=== PATIENT | male | born 1930 | race Caucasian/White ===

== ENCOUNTER 2017-03-13 11:34 | Observation (INO) | payer OTHER ==
[~2017-03-13] VITALS: Ht 170.2 cm; Wt 67.9 kg
[~2017-03-13 11:34] MED LIST: BACL20TA PO; ISOS30TA35 PO; METO25TA3 PO; NITR0.4S UT; PANT40TA PO; PRED20TA PO
[2017-03-13] MEDS ORDERED: SODIUM CHLORIDE 0.9% 1000ML 1,000 ML IV STA (12:50)
[2017-03-13] MEDS ORDERED: SODIUM CHLORIDE 0.9% 500ML 500 ML IV STA (12:50)
[2017-03-13] MEDS ORDERED: ONDANSETRON INJ 2 MG/ML 2 ML VIAL IV STA (12:50)
[2017-03-13 12:56] LABS: BASO % 0.2 %; BASO ABS # 0.02 K/uL (0-0.2); EOS % 0.8 %; EOS ABS # 0.07 K/uL (0-0.5); HEMATOCRIT 49.6 % (42-52); IG# 0.02 K/uL (0.00-0.02); LYMPH % 17.7 %; LYMPH ABS # 1.52 K/uL (1.2-3.4); MEAN CELL VOLUME 85.4 fL (80-100); MEAN CORPUSCULAR HEMOGLOBIN 29.3 pg (25-34); MEAN CORPUSCULAR HGB CONC 34.3 g/dl (32-36); MEAN PLATELET VOLUME 9.9 fL (7.4-10.4); MONO % 9.9 %; MONO ABS # 0.85 K/uL (0.11-0.59); NEUT % 71.2 %; NEUT ABS # 6.09 K/uL (1.4-6.5); PLATELET COUNT 170 K/uL (130-400); PTT PATIENT 22.7 SECONDS (21.0-31.0); RED CELL DISTRIBUTION WIDTH CV 14.5 % (11.5-14.5); RED CELL DISTRIBUTION WIDTH SD 44.6 fL (36.4-46.3); WHITE BLOOD COUNT 8.57 K/uL (4.8-10.8)
[2017-03-13] MEDS ORDERED: OPTIRAY 320 IV PRN (13:00)
[2017-03-13 13:07] LABS: ALT/SGPT 27 U/L (12-78); AST/SGOT 20 U/L (15-37); BLOOD UREA NITROGEN 30 mg/dl (7-18); CALCIUM 9.3 mg/dl (8.5-10.1); CARBON DIOXIDE 30 mmol/L (21-32); CREATININE 1.05 mg/dl (0.60-1.40); GLUCOSE 94 mg/dl (70-99); LIPASE 141 U/L (73-393); POTASSIUM 3.7 mmol/L (3.5-5.1); SODIUM 139 mmol/L (136-145)
[2017-03-13 13:18] LABS: ALKALINE PHOSPHATASE 83 U/L (45-117)
--- NOTE | 2017-03-13 14:43 | DIAGNOSTIC IMAGING REPORT ---
CT ANGIOGRAPHY HEAD COMBO CT DOSE: CLINICAL HISTORY: Neck pain and dizziness. Vomiting. TECHNIQUE: Unenhanced images were obtained the brain. CT angiography the brain was then performed in a dynamic helical fashion during intravenous administration of 93 cc Optiray 320. MIP imaging was performed. A dose lowering technique was utilized adhering to the principles of ALARA. COMPARISON STUDY: Noncontrast head CT dated 10/20/2013 FINDINGS: The noncontrast portion of the study reveal no intra or extra-axial mass lesions. There was no CT evidence of acute cortical infarction. 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 This was not present in 2013. There is no evidence of acute hemorrhage. There is no evidence of hydrocephalus. There is no evidence of acute sinusitis. Postcontrast angiographic images reveal left jugular bulb dehiscence. There is a hypoplastic right transverse sinus. 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 There are no major intracranial branch occlusions. There is no evidence of major intracranial stenosis. There are no lesion suspicious for aneurysm. There is no evidence of dural venous sinus thrombosis. IMPRESSION: 1. No evidence of major intracranial branch occlusion 2. No evidence of aneurysm 3. Fenestrated basilar artery 4. Left jugular bulb dehiscence Electronically signed by: Solitario Gary M.D. 03/13/2017 2:41 PM Dictated Date/Time: 03/13/2017 2:36 PM
[2017-03-13] MEDS ORDERED: ATOR-22 PO (14:46)
[2017-03-13] MEDS ORDERED: ISOS60TA25 PO (14:46)
[2017-03-13] MEDS ORDERED: PRT/20 PO (14:46)
[2017-03-13] MEDS ORDERED: ASPI81TA28 PO (14:46)
[2017-03-13] MEDS ORDERED: METO25TA3 PO (14:46)
[2017-03-13] MEDS ORDERED: CHOL1000 PO (14:46)
--- NOTE | 2017-03-13 14:50 | DIAGNOSTIC IMAGING REPORT ---
CT NECK ANGIO WITH CONTRAST CLINICAL HISTORY: Neck pain, dizziness, vomiting. COMPARISON STUDY: No previous studies for comparison. TECHNIQUE: CT angiography was performed from the aortic arch to the skull base. MIP imaging was performed. The patient was scanned in a dynamic helical fashion during intravenous administration of 93 cc of Optiray 320. A dose lowering technique was utilized adhering to the principles of ALARA. CT DOSE: 1073.90 mGy.cm Technique: CT angiogram of the carotid and vertebral arteries was obtained using intravenous contrast and 3-D reconstruction. NASCET criteria was utilized. Findings: There is a 40% stenosis of the right internal carotid origin. The left carotid revealed no evidence of hemodynamic significant stenosis. There is no evidence of aneurysm. There is no evidence of dissection. There is no evidence of hemodynamically significant vertebral stenosis. There is no evidence of vertebral dissection. 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 IMPRESSION: 1. 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 No evidence of hemodynamic significant left internal carotid artery stenosis 3. No evidence of vertebral artery stenosis 4. No evidence of vertebral or carotid artery dissection 5. Fenestrated basilar artery 6. Left jugular bulb dehiscence Electronically signed by: Solitario Gary M.D. 03/13/2017 2:48 PM Dictated Date/Time: 03/13/2017 2:42 PM
[2017-03-13] MEDS ORDERED: ASPIRIN 81 MG CHEW PO STA (15:52)
[2017-03-13 17:09] VITALS: O2SAT 94
[2017-03-13] MEDS ORDERED: ONDANSETRON INJ 2 MG/ML 2 ML VIAL IV PRN (18:00)
[2017-03-13] MEDS ORDERED: ALEN70TA4 PO (18:03)
--- NOTE | 2017-03-13 18:04 | History and Physical ---
History & Physical Date & Time of Service: Mar 13, 2017 at 18:04 Chief Complaint: Vom Green, Confusion, Neck Pain, Bad Balance Primary Care Physician: Radha Moon D.O. History of Present Illness Source: patient, family, spouse, clinic records, hospital records 87 year old male with PMH of osteoporosis, tobacco use, Dyslipidemia, TIA present to the ER with symptoms of dizziness and confusion. Pt family members at bedside. As per family members, on 03/10 pt saw his PCP because he was having severe neck spasms. PCP prescribed him baclofen 20mg TID and prednisone. Pt said that once starting taking the baclofen and prednisone, he developed nausea and vomiting within a few hours. He said that he had many episodes of vomiting. He said that he already vomited 3xtimes today. Pt said that he started to feel dizzy with the feeling the room is spinning. Pt said that his gait was unsteady and he developed double vision. family said that he was very confused and did not make sense at all. Family said that as his neck pain seems to be worst and his confusing got worst as well. family said that today he has not been urinating much. Family said that pt stating to feel much better now. Denies any weakness, numbness, slurred speech, chest pain, fever, palpitation and SOB. Past Medical/Surgical History Surgical Problems: (1) History of cardiac cath Status: Chronic Social History Smoking Status: Never Smoker Marital Status: Occupational Status: employed Allergies Coded Allergies: Tetanus Toxoid (Verified Allergy, Unknown, hallucinations, 03/13/17) Home Medications Scheduled Alendronate Sodium (Fosamax), 1 TAB PO WK Aspirin (Aspirin Ec), 81 MG PO DAILY Atorvastatin (Lipitor), 20 MG PO DAILY Baclofen (Lioresal), 20 MG PO TID Cholecalciferol (Vitamin D3), 2 TAB PO DAILY Isosorbide Mononitrate Ext Rel (Imdur Ext Rel), 60 MG PO QAM Metoprolol Succ (Toprol Xl) (Toprol-Xl), 25 MG PO DAILY Nitroglycerin (Nitrostat), 0.4 MG UT PRN Pantoprazole (Protonix), 20 MG PO DAILY Prednisone (Prednisone), 20 MG PO DAILY Review of Systems Constitutional: No fever, No chills Eyes: + diplopia, No eye pain ENT: + hearing loss (decrease hearing function), No unusual epistaxis, No sore throat, No trouble swallowing Respiratory: No cough, No sputum, No shortness of breath, No dyspnea on exertion Cardiovascular: No chest pain, No orthopnea, No PND, No palpitations Abdomen: + nausea, + vomiting, No pain Musculoskeletal: No joint pain, No muscle pain Genitourinary - Male: + urinary retention, No hematuria Neurologic: + vertigo, + balance problems, + problem reported (confusion) Psychiatric: No depression symptoms, No substance abuse Endocrine: No fatigue, No excessive thirst Hematologic / Lymphatic: No clotting problems, No night sweats Integumentary: No rash, No itch Physical Exam Vital Signs Date Time Temp Pulse Resp B/P (MAP) Pulse Ox O2 Delivery O2 Flow Rate FiO2 03/13/17 17:09 66 18 94 03/13/17 17:01 142/84 03/13/17 16:39 68 21 03/13/17 16:32 170/95 03/13/17 16:09 69 24 92 03/13/17 16:04 68 14 94 03/13/17 16:01 135/87 03/13/17 15:34 70 21 94 03/13/17 15:31 141/87 03/13/17 15:04 67 11 95 03/13/17 15:01 129/95 03/13/17 14:34 72 21 97 03/13/17 14:31 66 19 138/85 98 Room Air 03/13/17 14:30 138/85 03/13/17 14:29 139/89 03/13/17 13:34 63 17 03/13/17 13:30 129/79 03/13/17 13:13 157/91 03/13/17 13:12 68 20 157/91 95 Room Air 03/13/17 13:12 140/101 03/13/17 13:04 68 17 03/13/17 13:02 86/57 03/13/17 12:35 65 03/13/17 12:34 61 19 94 03/13/17 12:30 127/78 03/13/17 12:09 94 Room Air 03/13/17 11:55 36.6 72 18 126/82 96 Room Air General Appearance: WD/WN, no apparent distress Head: normocephalic, atraumatic Eyes: normal inspection, PERRL, EOMI ENT: + pertinent finding (decrease hearing function) Neck: no adenopathy, no JVD Respiratory/Chest: lungs clear, normal breath sounds, no accessory muscle use Cardiovascular: regular rate, rhythm, no edema, no JVD Abdomen/GI: normal bowel sounds, non tender, soft Back: no CVA tenderness Extremities/Musculoskelatal: no calf tenderness Neurologic/Psych: no motor/sensory deficits, alert, normal mood/affect, oriented x 3 Skin: warm/dry, no rash Diagnostics Laboratory Results Results Past 24 Hours Test 03/13/17 09:05 Range/Units White Blood Count 8.57 4.8-10.8 K/uL Red Blood Count 5.81 4.7-6.1 M/uL Hemoglobin 17.0 14.0-18.0 g/dL Hematocrit 49.6 42-52 % Mean Corpuscular Volume 85.4 80-100 fL Mean Corpuscular Hemoglobin 29.3 25-34 pg Mean Corpuscular Hemoglobin Concent 34.3 32-36 g/dl Platelet Count 170 130-400 K/uL Mean Platelet Volume 9.9 7.4-10.4 fL Neutrophils (%) (Auto) 71.2 % Lymphocytes (%) (Auto) 17.7 % Monocytes (%) (Auto) 9.9 % Eosinophils (%) (Auto) 0.8 % Basophils (%) (Auto) 0.2 % Neutrophils # (Auto) 6.09 1.4-6.5 K/uL Lymphocytes # (Auto) 1.52 1.2-3.4 K/uL Monocytes # (Auto) 0.85 0.11-0.59 K/uL Eosinophils # (Auto) 0.07 0-0.5 K/uL Basophils # (Auto) 0.02 0-0.2 K/uL RDW Standard Deviation 44.6 36.4-46.3 fL RDW Coefficient of Variation 14.5 11.5-14.5 % Immature Granulocyte % (Auto) 0.2 % Immature Granulocyte # (Auto) 0.02 0.00-0.02 K/uL Prothrombin Time 10.8 9.0-12.0 SECONDS Prothromb Time International Ratio 1.0 0.9-1.1 Activated Partial Thromboplast Time 22.7 21.0-31.0 SECONDS Partial Thromboplastin Ratio 0.9 Sodium Level 139 136-145 mmol/L Potassium Level 3.7 3.5-5.1 mmol/L Chloride Level 105 98-107 mmol/L Carbon Dioxide Level 30 21-32 mmol/L Anion Gap 4.0 3-11 mmol/L Blood Urea Nitrogen 30 7-18 mg/dl Creatinine 1.05 0.60-1.40 mg/dl Est Creatinine Clear Calc Drug Dose 46.4 ml/min Estimated GFR () 73.6 Estimated GFR (Non- 63.5 BUN/Creatinine Ratio 28.4 10-20 Random Glucose 94 70-99 mg/dl Calcium Level 9.3 8.5-10.1 mg/dl Magnesium Level 2.4 1.8-2.4 mg/dl Total Bilirubin 1.1 0.2-1 mg/dl Direct Bilirubin 0.2 0-0.2 mg/dl Aspartate Amino Transf (AST/SGOT) 20 15-37 U/L Alanine Aminotransferase (ALT/SGPT) 27 12-78 U/L Alkaline Phosphatase 83 45-117 U/L Troponin I < 0.015 0-0.045 ng/ml Total Protein 8.0 6.4-8.2 gm/dl Albumin 4.0 3.4-5.0 gm/dl Lipase 141 73-393 U/L Thyroid Stimulating Hormone (TSH) 3.320 0.300-4.500 uIu/ml Diagnostic Radiology CT NECK ANGIO WITH CONTRAST CLINICAL HISTORY: Neck pain, dizziness, vomiting. COMPARISON STUDY: No previous studies for comparison. TECHNIQUE: CT angiography was performed from the aortic arch to the skull base. MIP imaging was performed. The patient was scanned in a dynamic helical fashion during intravenous administration of 93 cc of Optiray 320. A dose lowering technique was utilized adhering to the principles of ALARA. CT DOSE: 1073.90 mGy.cm Technique: CT angiogram of the carotid and vertebral arteries was obtained using intravenous contrast and 3-D reconstruction. NASCET criteria was utilized. Findings: There is a 40% stenosis of the right internal carotid origin. The left carotid revealed no evidence of hemodynamic significant stenosis. There is no evidence of aneurysm. There is no evidence of dissection. There is no evidence of hemodynamically significant vertebral stenosis. There is no evidence of vertebral dissection. 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 IMPRESSION: 1. 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 No evidence of hemodynamic significant left internal carotid artery stenosis 3. No evidence of vertebral artery stenosis 4. No evidence of vertebral or carotid artery dissection 5. Fenestrated basilar artery 6. Left jugular bulb dehiscence Electronically signed by: Solitario Gary M.D. 03/13/2017 2:48 PM Dictated Date/Time: 03/13/2017 2:[address] ANGIOGRAPHY HEAD COMBO CT DOSE: CLINICAL HISTORY: Neck pain and dizziness. Vomiting. TECHNIQUE: Unenhanced images were obtained the brain. CT angiography the brain was then performed in a dynamic helical fashion during intravenous administration of 93 cc Optiray 320. MIP imaging was performed. A dose lowering technique was utilized adhering to the principles of ALARA. COMPARISON STUDY: Noncontrast head CT dated 10/20/2013 FINDINGS: The noncontrast portion of the study reveal no intra or extra-axial mass lesions. There was no CT evidence of acute cortical infarction. 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 This was not present in 2013. There is no evidence of acute hemorrhage. There is no evidence of hydrocephalus. There is no evidence of acute sinusitis. Postcontrast angiographic images reveal left jugular bulb dehiscence. There is a hypoplastic right transverse sinus. 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 There are no major intracranial branch occlusions. There is no evidence of major intracranial stenosis. There are no lesion suspicious for aneurysm. There is no evidence of dural venous sinus thrombosis. IMPRESSION: 1. No evidence of major intracranial branch occlusion 2. No evidence of aneurysm 3. Fenestrated basilar artery 4. Left jugular bulb dehiscence Electronically signed by: Solitario Gary M.D. 03/13/2017 2:41 PM Dictated Date/Time: 03/13/2017 2:36 PM Impression Assessment and Plan Altered Mental status associated with Dizziness Mostly related to medication side effect of Baclofen CTA head showed no acute finding. No evidence of major intracranial branch occlusion CTA neck showed 40% stenosis of the right internal carotid origin.No significant evidence of left internal carotid artery stenosis.No evidence of vertebral or carotid artery dissection No focal neuro deficit on exam Symptoms improved UA negative Will do neuro check Meclizine prn for dizziness Will do gentle hydration will monitor in tele Fall precaution PT/OT Nausea/Vomiting Related to medication side effect Lipase normal Hold baclofen Zofran prn Gentle IVF Neck Pain Will get an xray of the neck stating on lidocaine ointment pain control Urinary retention related to baclofen Will do bladder scan and straight cath if greater than 400 cc continue monitor CAD Denies any chest pain EKG showed no ischemic changes Continue metoprol/statin and aspirin stable H/o TIA Continue aspirin/ statin DVT px on heparin subq CODE Status FULL no Mech Ventilation as per my discussion with pt and his family Level of Care Telemetry Resuscitation Status FULL NO MECH VENTILATION VTE Prophylaxis VTE Risk Assessment Done? Y/N: Yes Risk Level: Moderate
[2017-03-13] MEDS ORDERED: MECLIZINE HCL 12.5 MG TAB PO PRN (18:15)
[2017-03-13] MEDS ORDERED: SODIUM CHLORIDE 0.9% 1000ML 1,000 ML IV SCH (18:15)
[2017-03-13] MEDS ORDERED: LIDOCAINE HCL 5% OINT 30 GM TUBE EXT PRN (18:15)
[2017-03-13 18:33] VITALS: BP 130/70; PULSE 62; TEMP 36.9; O2SAT 94
[2017-03-13 19:17] VITALS: BP 130/70; PULSE 62; TEMP 36.9; Ht 170.2 cm; Wt 67.9 kg
[2017-03-13] MEDS ORDERED: IV FLUIDS COMPLETED PRN (20:30)
[2017-03-13] MEDS ORDERED: ACETAMINOPHEN 325 MG TAB PO PRN (20:45)
[2017-03-13] MEDS: HEPARIN SOD 5000 UNIT/0.5 ML CARP SQ SCH (21:36)
--- NOTE | 2017-03-13 22:00 | EMERGENCY ROOM VISIT NOTE ---
History Report prepared by Saira: Darren Still Under the Supervision of: Dr. Luis Fernando Mercer M.D. First contact with patient: 12:12 Chief Complaint: VOMITING Stated Complaint: VOM GREEN, CONFUSION, NECK PAIN, BAD BALANCE Nursing Triage Summary: pt to Triage with family. reports pt had left sided neck pain last week, seen by PCP on Friday. pt was put on Prednisone. Pt then began vomiting. Pt has been vomiting green bile. pt still c/o right sided neck pain, dizziness. Has been having falls. denies hitting head. family reports pt is confused at times. pt awake and alert in Triage History of Present Illness The patient is an 87 year old male who presents to the Emergency Room with complaints of worsening dizziness and confusion that the patient began to experience yesterday. The patient went to his primary care office last week for pain in the right side of his neck. He was not vomiting at this time. He was given Baclofen and Prednisone for a muscle spasm. Friday, two days ago, the patient took his medications and immediately vomited. He has vomited multiple times since Friday. Yesterday the patient began to feel dizzy and confused. The patient notes that "the room is spinning" and that he is seeing double vision. The rooms spinning is present when standing up and laying down. He is also unsteady on his feel and is not able to ambulate well. He has been stumbling to both sides, not to any one particular direction. This is all unusual for him. The patient's family at bedside notes that he is intermittently confused and not making sense when he is talking. The patient's also notes worsening fatigue. The patient denies LOC, fevers, chills, diaphoresis, chest pain, breathing difficulties, abdominal pain, back pain, melena, hematochezia, urinary symptoms, numbness, weakness, lymphadenopathy, rash, or other complaints. Per the patient's he has had a stroke in the past. 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 A total of ten systems were reviewed and were otherwise negative. Past Medical & Surgical Medical Problems: (1) Dizziness Surgical Problems: (1) History of cardiac cath TIA (transient ischemic attack) Family History No pertinent family history secondary to age. Social History Smoking Status: Never Smoker Marital Status: Housing Status: lives with family Occupation Status: employed Current/Historical Medications Scheduled Alendronate Sodium (Fosamax), 1 TAB PO WK Aspirin (Aspirin Ec), 81 MG PO DAILY Atorvastatin (Lipitor), 20 MG PO DAILY Baclofen (Lioresal), 20 MG PO TID Cholecalciferol (Vitamin D3), 2 TAB PO DAILY Isosorbide Mononitrate Ext Rel (Imdur Ext Rel), 60 MG PO QAM Metoprolol Succ (Toprol Xl) (Toprol-Xl), 25 MG PO DAILY Nitroglycerin (Nitrostat), 0.4 MG UT PRN Pantoprazole (Protonix), 20 MG PO DAILY Prednisone (Prednisone), 20 MG PO DAILY Allergies Coded Allergies: Tetanus Toxoid (Verified Allergy, Unknown, hallucinations, 03/13/17) Physical Exam Vital Signs Date Time Temp Pulse Resp B/P (MAP) Pulse Ox O2 Delivery O2 Flow Rate FiO2 03/13/17 17:01 142/84 03/13/17 16:39 68 21 03/13/17 16:32 170/95 03/13/17 16:09 69 24 92 03/13/17 16:04 68 14 94 03/13/17 16:01 135/87 03/13/17 15:34 70 21 94 03/13/17 15:31 141/87 03/13/17 15:04 67 11 95 03/13/17 15:01 129/95 03/13/17 14:34 72 21 97 03/13/17 14:31 66 19 138/85 98 Room Air 03/13/17 14:30 138/85 03/13/17 14:29 139/89 03/13/17 13:34 63 17 03/13/17 13:30 129/79 03/13/17 13:13 157/91 03/13/17 13:12 68 20 157/91 95 Room Air 03/13/17 13:12 140/101 03/13/17 13:04 68 17 03/13/17 13:02 86/57 03/13/17 12:35 65 03/13/17 12:34 61 19 94 03/13/17 12:30 127/78 03/13/17 12:09 94 Room Air 03/13/17 11:55 36.6 72 18 126/82 96 Room Air Physical Exam GENERAL: Awake, alert, well appearing, no distress HENT: Normocephalic, atraumatic. TM's normal. Oropharynx unremarkable. EYES: PERRL. EOMI. Normal conjunctiva. Sclera non-icteric. NECK: Supple. No nuchal rigidity. FROM. No JVD or bruit. RESPIRATORY: CTA CARDIAC: RRR. No murmur. ABDOMEN: Soft, non distended. No tenderness to palpation. No rebound or guarding. No masses. RECTAL: Deferred. MUSCULOSKELETAL: There is right trapezius tenderness. Unremarkable. No edema. No discoloration. Gross motor strength symmetric. NEURO: Cranial nerves 2-12 grossly intact. Normal sensorium. No sensory or motor deficits noted. Speech normal. No pronator drift. Slow rapid alternating movements, equivocal heel to james. SKIN: No rash or jaundice noted. LYMPH: No adenopathy. Medical Decision & Procedures ER Provider Diagnostic Interpretation: Radiology results as stated below per my review and radiologist interpretation: CT NECK ANGIO WITH CONTRAST CLINICAL HISTORY: Neck pain, dizziness, vomiting. COMPARISON STUDY: No previous studies for comparison. TECHNIQUE: CT angiography was performed from the aortic arch to the skull base. MIP imaging was performed. The patient was scanned in a dynamic helical fashion during intravenous administration of 93 cc of Optiray 320. A dose lowering technique was utilized adhering to the principles of ALARA. CT DOSE: 1073.90 mGy.cm Technique: CT angiogram of the carotid and vertebral arteries was obtained using intravenous contrast and 3-D reconstruction. NASCET criteria was utilized. Findings: There is a 40% stenosis of the right internal carotid origin. The left carotid revealed no evidence of hemodynamic significant stenosis. There is no evidence of aneurysm. There is no evidence of dissection. There is no evidence of hemodynamically significant vertebral stenosis. There is no evidence of vertebral dissection. 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 IMPRESSION: 1. 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 No evidence of hemodynamic significant left internal carotid artery stenosis 3. No evidence of vertebral artery stenosis 4. No evidence of vertebral or carotid artery dissection 5. Fenestrated basilar artery 6. Left jugular bulb dehiscence Electronically signed by: Solitario Gary M.D. 03/13/2017 2:48 PM Dictated Date/Time: 03/13/2017 2:42 PM+ CT ANGIOGRAPHY HEAD COMBO CT DOSE: CLINICAL HISTORY: Neck pain and dizziness. Vomiting. TECHNIQUE: Unenhanced images were obtained the brain. CT angiography the brain was then performed in a dynamic helical fashion during intravenous administration of 93 cc Optiray 320. MIP imaging was performed. A dose lowering technique was utilized adhering to the principles of ALARA. COMPARISON STUDY: Noncontrast head CT dated 10/20/2013 FINDINGS: The noncontrast portion of the study reveal no intra or extra-axial mass lesions. There was no CT evidence of acute cortical infarction. 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 This was not present in 2013. There is no evidence of acute hemorrhage. There is no evidence of hydrocephalus. There is no evidence of acute sinusitis. Postcontrast angiographic images reveal left jugular bulb dehiscence. There is a hypoplastic right transverse sinus. 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 There are no major intracranial branch occlusions. There is no evidence of major intracranial stenosis. There are no lesion suspicious for aneurysm. There is no evidence of dural venous sinus thrombosis. IMPRESSION: 1. No evidence of major intracranial branch occlusion 2. No evidence of aneurysm 3. Fenestrated basilar artery 4. Left jugular bulb dehiscence Electronically signed by: Solitario Gary M.D. 03/13/2017 2:41 PM Dictated Date/Time: 03/13/2017 2:36 PM Laboratory Results 03/13/17 09:05 Red Blood Count 5.81, Mean Corpuscular Volume 85.4, Mean Corpuscular Hemoglobin 29.3, Mean Corpuscular Hemoglobin Concent 34.3, Mean Platelet Volume 9.9, Neutrophils (%) (Auto) 71.2, Lymphocytes (%) (Auto) 17.7, Monocytes (%) (Auto) 9.9, Eosinophils (%) (Auto) 0.8, Basophils (%) (Auto) 0.2, Neutrophils # (Auto) 6.09, Lymphocytes # (Auto) 1.52, Monocytes # (Auto) 0.85, Eosinophils # (Auto) 0.07, Basophils # (Auto) 0.02 03/13/17 09:05 Test 03/13/17 09:05 White Blood Count 8.57 K/uL (4.8-10.8) Red Blood Count 5.81 M/uL (4.7-6.1) Hemoglobin 17.0 g/dL (14.0-18.0) Hematocrit 49.6 % (42-52) Mean Corpuscular Volume 85.4 fL (80-100) Mean Corpuscular Hemoglobin 29.3 pg (25-34) Mean Corpuscular Hemoglobin Concent 34.3 g/dl (32-36) Platelet Count 170 K/uL (130-400) Mean Platelet Volume 9.9 fL (7.4-10.4) Neutrophils (%) (Auto) 71.2 % Lymphocytes (%) (Auto) 17.7 % Monocytes (%) (Auto) 9.9 % Eosinophils (%) (Auto) 0.8 % Basophils (%) (Auto) 0.2 % Neutrophils # (Auto) 6.09 K/uL (1.4-6.5) Lymphocytes # (Auto) 1.52 K/uL (1.2-3.4) Monocytes # (Auto) 0.85 K/uL (0.11-0.59) Eosinophils # (Auto) 0.07 K/uL (0-0.5) Basophils # (Auto) 0.02 K/uL (0-0.2) RDW Standard Deviation 44.6 fL (36.4-46.3) RDW Coefficient of Variation 14.5 % (11.5-14.5) Immature Granulocyte % (Auto) 0.2 % Immature Granulocyte # (Auto) 0.02 K/uL (0.00-0.02) Prothrombin Time 10.8 SECONDS (9.0-12.0) Prothromb Time International Ratio 1.0 (0.9-1.1) Activated Partial Thromboplast Time 22.7 SECONDS (21.0-31.0) Partial Thromboplastin Ratio 0.9 Anion Gap 4.0 mmol/L (3-11) Est Creatinine Clear Calc Drug Dose 46.4 ml/min Estimated GFR () 73.6 Estimated GFR (Non- 63.5 BUN/Creatinine Ratio 28.4 (10-20) Calcium Level 9.3 mg/dl (8.5-10.1) Magnesium Level 2.4 mg/dl (1.8-2.4) Total Bilirubin 1.1 mg/dl (0.2-1) Direct Bilirubin 0.2 mg/dl (0-0.2) Aspartate Amino Transf (AST/SGOT) 20 U/L (15-37) Alanine Aminotransferase (ALT/SGPT) 27 U/L (12-78) Alkaline Phosphatase 83 U/L (45-117) Troponin I < 0.015 ng/ml (0-0.045) Total Protein 8.0 gm/dl (6.4-8.2) Albumin 4.0 gm/dl (3.4-5.0) Lipase 141 U/L (73-393) Thyroid Stimulating Hormone (TSH) 3.320 uIu/ml (0.300-4.500) Laboratory results reviewed by me Medications Administered Medications (Trade) Dose Ordered Sig/Luther Route Start Time Stop Time Status Last Admin Dose Admin Sodium Chloride 1,000 ml @ 125 mls/hr Q8H STAT IV 03/13/17 12:50 03/13/17 18:15 DC 03/13/17 13:46 125 MLS/HR Sodium Chloride 500 ml @ 999 mls/hr Q31M STAT IV 03/13/17 12:50 03/13/17 13:20 DC 03/13/17 13:10 999 MLS/HR Ondansetron HCl (Zofran Inj) 4 mg NOW STAT IV 03/13/17 12:50 03/13/17 12:53 DC 03/13/17 13:09 4 MG Aspirin (Aspirin Chew) 324 mg NOW STAT PO 03/13/17 15:52 03/13/17 15:53 DC 03/13/17 16:23 324 MG ECG Indication: altered mental status, vomiting Rate (beats per minute): 69 Rhythm: normal sinus Findings: LAFB, Q waves (Anterolateral), no ectopy Change: Patient's Electrocardiogram reading per my interpretation. ED Course 1246: The patient was evaluated in room C5. A complete history and physical exam was performed. 1250: Ordered Zofran 4 mg IV, Sodium Chloride 500 mL @ 999 mL/hr IV, Sodium Chloride 1000 mL @ 125 mL/hr IV. 1551: I checked on the patient at this time. He was resting in bed. 1552: Ordered Aspirin 324 mg PO. 1609: I discussed the case with Erica Groves PA-C. She will evaluate the patient for further treatment. Medical Decision Prior records/ancillary studies reviewed. Triage Nursing notes reviewed and agree them. The patient's history was concerning for dizziness, neck pain, double vision, and confusion. Differential diagnosis: Etiologies such as vertebral artery dissection, CVA, benign positional vertigo, tumor, infection, hypoglycemia, electrolyte abnormalities, cardiac sources, intracerebral event, toxicologic, neurologic, as well as others were entertained. Physical examination: As above. No pathologic nystagmus. ER treatment provided: IV hydration over one hour IV Zofran On reassessment the patient felt well. Diagnostics interpretation by me: ECG: Normal sinus rhythm without ischemic change or evidence of dysrhythmia. The labs revealed a normal CBC and chemistry panel except for mild dehydration. The patient's history was concerning for possible CVA given the neck pain, dizziness, double vision and nausea and vomiting. The patient was mildly dehydrated. He was hydrated and given Zofran. He felt better with this. CT imaging was thankfully negative however further workup I believe is necessary. Family was comfortable as was the patient. Consultation: A consultation was placed with the hospitalist. The case was discussed and diagnostics were reviewed. The patient was evaluated in the ER for further treatment. Consults Time Called: 1600 Consulting Physician: Erica Groves PA-C Returned Call: 1609 I discussed the case with Erica Groves PA-C. She will evaluate the patient for further treatment. Impression Primary Impression: Vomiting Additional Impressions: Dizziness Neck pain Double vision Scribe Attestation The scribe's documentation has been prepared under my direction and personally reviewed by me in its entirety. I confirm that the note above accurately reflects all work, treatment, procedures, and medical decision making performed by me. Departure Information Dispostion Being Evaluated By Hospitalist Referrals Emilia Brothers M.D. (PCP) Patient Instructions [facility] Problem Qualifiers
--- NOTE | 2017-03-13 22:55 | DIAGNOSTIC IMAGING REPORT ---
CERVICAL SPINE 3 VIEWS CLINICAL HISTORY: Neck tenderness. FINDINGS: AP, lateral, and odontoid views of the cervical spine are correlated with CT angiogram of the neck dated 03/13/2017. The skeletal structures are osteopenic. There is no radiographic evidence of fracture or subluxation. The odontoid process and lateral masses are suboptimally visualized but grossly intact. The atlantodental articulation is maintained noting productive degenerative change. The spinolaminar line is preserved. Vertebral body height is maintained throughout the cervical spine. Minimal anterolisthesis is seen at C4-C5. Alignment is otherwise preserved. Tiny anterior osteophytes are noted in the lower cervical region. The spinous processes appear intact. Moderate disc space narrowing is seen at C5-C6. Mild disc space narrowing is noted at the remaining cervical levels. Multilevel facet arthropathy is seen on the frontal view. The prevertebral soft tissues are within normal limits. Atherosclerotic calcification is noted in the carotid bulbs. The partially imaged upper lobe lung parenchyma is grossly clear. IMPRESSION: 1. No acute bony abnormality is identified involving the cervical spine. 2. Osteopenia and spondylotic change as above. Dictated: 03/13/2017 10:27 PM Transcribed: 03/13/2017 10:55 PM [email or web address] Electronically signed by: Tomas Bishop M.D. 03/13/2017 10:56 PM Dictated Date/Time: 03/13/2017 10:27 PM
[2017-03-13 23:47] VITALS: BP 146/88; PULSE 75; TEMP 36.1; O2SAT 95
[2017-03-14 05:03] VITALS: BP_SYST 133; BP_SYST 165; BP_DIAS 74; BP_DIAS 92; PULSE 71; TEMP 36.4; O2SAT 94
[2017-03-14 07:04] LABS: HEMOGLOBIN 15.6 g/dL (14.0-18.0); MEAN CELL VOLUME 86.3 fL (80-100); MEAN CORPUSCULAR HEMOGLOBIN 29.3 pg (25-34); MEAN CORPUSCULAR HGB CONC 33.9 g/dl (32-36); MEAN PLATELET VOLUME 9.6 fL (7.4-10.4); PLATELET COUNT 135 K/uL (130-400); RED CELL DISTRIBUTION WIDTH CV 14.5 % (11.5-14.5); RED CELL DISTRIBUTION WIDTH SD 45.5 fL (36.4-46.3); WHITE BLOOD COUNT 6.25 K/uL (4.8-10.8)
[2017-03-14 07:41] LABS: CALCIUM 8.5 mg/dl (8.5-10.1); CREATININE 0.99 mg/dl (0.60-1.40); POTASSIUM 3.9 mmol/L (3.5-5.1)
[2017-03-14] MEDS: HEPARIN SOD 5000 UNIT/0.5 ML CARP SQ SCH (07:45)
[2017-03-14 07:57] VITALS: BP 150/76; PULSE 71; TEMP 36.5; O2SAT 94
[2017-03-14] MEDS ORDERED: METOPROLOL SUCC 25MG EXT REL TAB PO SCH (09:00)
[2017-03-14] MEDS ORDERED: ASPIRIN 81 MG ECTAB PO SCH (09:00)
[2017-03-14] MEDS ORDERED: ISOSORBIDE MONONITRATE 60 MG TABCR PO SCH (09:00)
[2017-03-14] MEDS ORDERED: PANTOprazole SOD 40 MG TAB PO SCH (09:00)
[2017-03-14] MEDS ORDERED: CHOLECALCIFEROL 1000 INTER.UNIT TAB PO SCH (09:00)
[2017-03-14] MEDS ORDERED: ATORVASTATIN 20 MG TAB PO SCH (09:00)
[2017-03-14 11:59] VITALS: BP 111/66; PULSE 68; TEMP 36.4; O2SAT 94
[2017-03-14] MEDS ORDERED: KETOROLAC TROMETHAMINE 15 MG/ML VIAL IM ONE (12:00)
[2017-03-14] MEDS ORDERED: LIDODERM (LIDOCAINE) PATCH 5% TD ONE (12:11)
--- NOTE | 2017-03-14 12:11 | Progress Note ---
Medicine Progress Note Date & Time of Visit: Mar 14, 2017 at 11:56. Subjective Pt was see and examined Lying in bed with no distress Pt said that he does not have any dizziness he said that he has a good BM He has not been vomiting and no nausea He said that he tolerates diet well Denies any chest pain, palpitation, dizziness and SOB Objective Last 8 Hrs Date Time Temp Pulse Resp B/P (MAP) Pulse Ox O2 Delivery O2 Flow Rate FiO2 03/14/17 11:51 Room Air 03/14/17 07:57 36.5 71 20 150/76 (100) 94 03/14/17 07:30 Room Air 03/14/17 05:03 36.4 71 19 165/92 (116) 94 Room Air 133/74 (93) 03/14/17 04:00 Room Air Physical Exam: General- No acute distress Head- atraumatic Eyes- PERRL, EOMI ENT- oropharynx clear Neck- supple, no JVD Lungs- clear to auscultation Heart- regular rhythm Abdomen- normal bowel sounds, soft, Extremities- no calf tenderness Neuro- alert, oriented x 3; PERRL Skin- warm & dry Laboratory Results: Last 24 Hours Test 03/13/17 18:30 03/14/17 06:39 Urine Color YELLOW Urine Appearance CLEAR Urine pH 5.0 Urine Specific [place] > 1.045 Urine Protein NEG Urine Glucose (UA) NEG Urine Ketones NEG Urine Occult Blood NEG Urine Nitrite NEG Urine Bilirubin NEG Urine Urobilinogen NEG Urine Leukocyte Esterase NEG White Blood Count 6.25 K/uL Red Blood Count 5.33 M/uL Hemoglobin 15.6 g/dL Hematocrit 46.0 % Mean Corpuscular Volume 86.3 fL Mean Corpuscular Hemoglobin 29.3 pg Mean Corpuscular Hemoglobin Concent 33.9 g/dl RDW Standard Deviation 45.5 fL RDW Coefficient of Variation 14.5 % Platelet Count 135 K/uL Mean Platelet Volume 9.6 fL Sodium Level 140 mmol/L Potassium Level 3.9 mmol/L Chloride Level 107 mmol/L Carbon Dioxide Level 27 mmol/L Anion Gap 6.0 mmol/L Blood Urea Nitrogen 31 mg/dl Creatinine 0.99 mg/dl Est Creatinine Clear Calc Drug Dose 49.2 ml/min Estimated GFR () 79.0 Estimated GFR (Non- 68.2 BUN/Creatinine Ratio 31.6 Random Glucose 76 mg/dl Calcium Level 8.5 mg/dl Date/Time Source Procedure Growth Status 03/13/17 18:30 Urine , Clean Catch Urine Culture Pending Received Assessment & Plan Altered Mental status associated with Dizziness Mostly related to medication side effect of Baclofen CTA head showed no acute finding. No evidence of major intracranial branch occlusion CTA neck showed 40% stenosis of the right internal carotid origin.No significant evidence of left internal carotid artery stenosis.No evidence of vertebral or carotid artery dissection Denies any symptoms today UA negative Meclizine prn for dizziness No arrhythmia Fall precaution PT/OT Resolved Nausea/Vomiting Related to medication side effect Lipase normal Continue holding baclofen Resolved Neck Pain Xray showed no acute bony abnormality is identified involving the cervical spine. Toradol given Recommended outpatient PT pain control Urinary retention Related to baclofen resolved CAD Denies any chest pain EKG showed no ischemic changes Continue metoprol/statin and aspirin stable H/o TIA Continue aspirin/ statin DVT px on heparin subq CODE Status FULL no Mech Ventilation Disposition Will discharge home today Current Inpatient Medications: Current Inpatient Medications Medications (Trade) Dose Ordered Sig/Luther Route Start Time Stop Time Status Last Admin Dose Admin Ioversol (Optiray 320) 100 ml UD PRN IV 03/13/17 13:00 03/17/17 12:59 Ondansetron HCl (Zofran Inj) 4 mg Q6H PRN IV 03/13/17 18:00 04/12/17 17:59 Meclizine HCl (Antivert Tab) 12.5 mg Q12 PRN PO 03/13/17 18:15 04/12/17 18:14 Lidocaine HCl (Xylocaine Oint 5%) 1 appln Q12 PRN EXT 03/13/17 18:15 04/12/17 18:14 03/13/17 19:56 1 APPLN Aspirin (Ecotrin Tab) 81 mg DAILY PO 03/14/17 09:00 04/13/17 08:59 03/14/17 07:42 81 MG Atorvastatin Calcium (Lipitor Tab) 20 mg DAILY PO 03/14/17 09:00 04/13/17 08:59 03/14/17 07:42 20 MG Cholecalciferol (Vitamin D Tab) 2,000 inter.unit DAILY PO 03/14/17 09:00 04/13/17 08:59 03/14/17 07:42 2,000 INTER.UNIT Isosorbide Mononitrate (Imdur Ext Rel Tab) 60 mg QAM PO 03/14/17 09:00 04/13/17 08:59 03/14/17 07:42 60 MG Metoprolol Succinate (Toprol Xl Tab) 25 mg DAILY PO 03/14/17 09:00 04/13/17 08:59 03/14/17 08:17 25 MG Pantoprazole Sodium (Protonix Tab) 20 mg DAILY PO 03/14/17 09:00 04/13/17 08:59 03/14/17 07:42 20 MG Miscellaneous (Iv Fluids Completed) 1 ea PRN PRN N/A 03/13/17 20:30 03/13/18 20:29 03/14/17 08:46 1 EA Heparin Sodium (Porcine) (Heparin Sq 5000 Unit/0.5ml) 5,000 unit Q12 SQ 03/13/17 21:00 04/12/17 20:59 03/14/17 07:45 5,000 UNIT Acetaminophen (Tylenol Tab) 650 mg Q6 PRN PO 03/13/17 20:45 04/12/17 20:44 03/14/17 07:44 650 MG Ketorolac Tromethamine (Toradol Inj) 15 mg ONE ONCE IM 03/14/17 12:00 03/14/17 12:01 UNV
[2017-03-14] MEDS ORDERED: NURSING VERBAL MED ORDER ONE (12:30)
[2017-03-14] MEDS ORDERED: KETOROLAC TROMETHAMINE 15 MG/ML VIAL IV. ONE (13:15)
[2017-03-14] MEDS ORDERED: LDDP5 TD (15:51)
--- NOTE | 2017-03-14 15:55 | Discharge Instructions ---
Discharge Instructions Date of Service Mar 14, 2017. Admission Reason for Admission: Dizziness Discharge Discharge Diagnosis / Problem: Altered Mental Status, Dizziness, Nauseas/ Vominting Discharge Goals Goal(s): Decrease discomfort, Improve function, Increase independence Activity Recommendations Activity Limitations: resume your previous activity (as tolerated) . Instructions / Follow-Up Instructions / Follow-Up Follow up with Dr. Gao (Dr. Moon Colleague) on 03/19 @ 11:30 am at the [facility] Fall precaution Continue physical therapy ( script given) Current Hospital Diet Patient's current hospital diet: AHA Diet (Heart Healthy) Discharge Diet Recommended Diet: AHA Diet (Heart Healthy) Pending Studies Studies pending at discharge: no Medical Emergencies . Who to Call and When: Medical Emergencies: If at any time you feel your situation is an emergency, please call 911 immediately. . Non-Emergent Contact Non-Emergency issues call your: Primary Care Provider Call Non-Emergent contact if: your pain is not controlled, your pain is worsening, you have any medication questions . . "Provider Documentation" section prepared by Marie Frank. . VTE Core Measure Inpt VTE Proph given/why not?: Unfractionated heparin SQ
[2017-03-14 16:02] VITALS: BP 114/73; PULSE 62; TEMP 36.3; O2SAT 95
[2017-03-14 16:16] VITALS: BP 114/73; PULSE 62; TEMP 36.3; O2SAT 95
[2017-03-15] MEDS ORDERED: LIDODERM (LIDOCAINE) PATCH 5% TD SCH (09:00)
--- NOTE | 2017-03-17 00:23 | Discharge Summary ---
Discharge Summary Date of Service Mar 17, 2017. Discharge Summary Admission Date: Mar 13, 2017 at 17:01 Discharge Date: Mar 14, 2017 Discharge Disposition: Home Principal Diagnosis: Altered Mental status associated with Dizziness Secondary Diagnoses/Problems: Nausea/Vomiting Neck Pain Urinary retention CAD H/o TIA Procedures: CERVICAL SPINE 3 VIEWS CLINICAL HISTORY: Neck tenderness. FINDINGS: AP, lateral, and odontoid views of the cervical spine are correlated with CT angiogram of the neck dated 03/13/2017. The skeletal structures are osteopenic. There is no radiographic evidence of fracture or subluxation. The odontoid process and lateral masses are suboptimally visualized but grossly intact. The atlantodental articulation is maintained noting productive degenerative change. The spinolaminar line is preserved. Vertebral body height is maintained throughout the cervical spine. Minimal anterolisthesis is seen at C4-C5. Alignment is otherwise preserved. Tiny anterior osteophytes are noted in the lower cervical region. The spinous processes appear intact. Moderate disc space narrowing is seen at C5-C6. Mild disc space narrowing is noted at the remaining cervical levels. Multilevel facet arthropathy is seen on the frontal view. The prevertebral soft tissues are within normal limits. Atherosclerotic calcification is noted in the carotid bulbs. The partially imaged upper lobe lung parenchyma is grossly clear. IMPRESSION: 1. No acute bony abnormality is identified involving the cervical spine. 2. Osteopenia and spondylotic change as above. Dictated: 03/13/2017 10:27 PM Transcribed: 03/13/2017 10:55 PM [email or web address] Electronically signed by: Tomas Bishop M.D. 03/13/2017 10:56 PM Dictated Date/Time: 03/13/2017 10:[address] NECK ANGIO WITH CONTRAST CLINICAL HISTORY: Neck pain, dizziness, vomiting. COMPARISON STUDY: No previous studies for comparison. TECHNIQUE: CT angiography was performed from the aortic arch to the skull base. MIP imaging was performed. The patient was scanned in a dynamic helical fashion during intravenous administration of 93 cc of Optiray 320. A dose lowering technique was utilized adhering to the principles of ALARA. CT DOSE: 1073.90 mGy.cm Technique: CT angiogram of the carotid and vertebral arteries was obtained using intravenous contrast and 3-D reconstruction. NASCET criteria was utilized. Findings: There is a 40% stenosis of the right internal carotid origin. The left carotid revealed no evidence of hemodynamic significant stenosis. There is no evidence of aneurysm. There is no evidence of dissection. There is no evidence of hemodynamically significant vertebral stenosis. There is no evidence of vertebral dissection. 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 IMPRESSION: 1. 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 No evidence of hemodynamic significant left internal carotid artery stenosis 3. No evidence of vertebral artery stenosis 4. No evidence of vertebral or carotid artery dissection 5. Fenestrated basilar artery 6. Left jugular bulb dehiscence Electronically signed by: Solitario Gary M.D. 03/13/2017 2:48 PM Dictated Date/Time: 03/13/2017 2:[address] ANGIOGRAPHY HEAD COMBO CT DOSE: CLINICAL HISTORY: Neck pain and dizziness. Vomiting. TECHNIQUE: Unenhanced images were obtained the brain. CT angiography the brain was then performed in a dynamic helical fashion during intravenous administration of 93 cc Optiray 320. MIP imaging was performed. A dose lowering technique was utilized adhering to the principles of ALARA. COMPARISON STUDY: Noncontrast head CT dated 10/20/2013 FINDINGS: The noncontrast portion of the study reveal no intra or extra-axial mass lesions. There was no CT evidence of acute cortical infarction. 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 This was not present in 2013. There is no evidence of acute hemorrhage. There is no evidence of hydrocephalus. There is no evidence of acute sinusitis. Postcontrast angiographic images reveal left jugular bulb dehiscence. There is a hypoplastic right transverse sinus. 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 There are no major intracranial branch occlusions. There is no evidence of major intracranial stenosis. There are no lesion suspicious for aneurysm. There is no evidence of dural venous sinus thrombosis. IMPRESSION: 1. No evidence of major intracranial branch occlusion 2. No evidence of aneurysm 3. Fenestrated basilar artery 4. Left jugular bulb dehiscence Electronically signed by: Solitario Gary M.D. 03/13/2017 2:41 PM Dictated Date/Time: 03/13/2017 2:36 PM Medication Reconciliation New Medications: Lidocaine (Lidocaine) 1 Patch Tdsy 1 PATCH TD QAM for 10 Days Apply for 12hrs, then remove for 12hrs Continued Medications: Alendronate Sodium (Fosamax) 70 Mg Tab 1 TAB PO WK, TAB 3 Refills Aspirin (Aspirin Ec) 81 Mg Tab 81 MG PO DAILY Atorvastatin (Lipitor) 20 Mg Tab 20 MG PO DAILY, TAB Cholecalciferol (Vitamin D3) 1,000 Unit Tab 2 TAB PO DAILY, TAB Isosorbide Mononitrate Ext Rel (Imdur Ext Rel) 60 Mg Ertab 60 MG PO QAM, TAB Metoprolol Succ (Toprol Xl) (Toprol-Xl) 25 Mg Tabcr 25 MG PO DAILY, TAB Nitroglycerin (Nitrostat) 0.4 Mg Sub 0.4 MG UT PRN, BTL Pantoprazole (Protonix) 20 Mg Tab 20 MG PO DAILY, TAB Discontinued Medications: Baclofen (Lioresal) 20 Mg Tab 20 MG PO TID, TAB Prednisone (Prednisone) 20 Mg Tab 20 MG PO DAILY for 10 Days, #10 TAB Admission Information HPI (per Admitting provider): 87 year old male with PMH of osteoporosis, tobacco use, Dyslipidemia, TIA present to the ER with symptoms of dizziness and confusion. Pt family members at bedside. As per family members, on 03/10 pt saw his PCP because he was having severe neck spasms. PCP prescribed him baclofen 20mg TID and prednisone. Pt said that once starting taking the baclofen and prednisone, he developed nausea and vomiting within a few hours. He said that he had many episodes of vomiting. He said that he already vomited 3xtimes today. Pt said that he started to feel dizzy with the feeling the room is spinning. Pt said that his gait was unsteady and he developed double vision. family said that he was very confused and did not make sense at all. Family said that as his neck pain seems to be worst and his confusing got worst as well. family said that today he has not been urinating much. Family said that pt stating to feel much better now. Denies any weakness, numbness, slurred speech, chest pain, fever, palpitation and SOB. Physical Exam (per Admitting): General Appearance: WD/WN, no apparent distress Head: normocephalic, atraumatic Eyes: normal inspection, PERRL, EOMI ENT: + pertinent finding (decrease hearing function) Neck: no adenopathy, no JVD Respiratory/Chest: lungs clear, normal breath sounds, no accessory muscle use Cardiovascular: regular rate, rhythm, no edema, no JVD Abdomen/GI: normal bowel sounds, non tender, soft Back: no CVA tenderness Extremities/Musculoskelatal: no calf tenderness Neurologic/Psych: no motor/sensory deficits, alert, normal mood/affect, oriented x 3 Skin: warm/dry, no rash Hospital Course Altered Mental status associated with Dizziness Mostly related to medication side effect of Baclofen CTA head showed no acute finding. No evidence of major intracranial branch occlusion CTA neck showed 40% stenosis of the right internal carotid origin.No significant evidence of left internal carotid artery stenosis.No evidence of vertebral or carotid artery dissection Denies any symptoms today UA negative Meclizine prn for dizziness No arrhythmia Fall precaution PT/OT Resolved Nausea/Vomiting Related to medication side effect Lipase normal Continue holding baclofen Resolved Neck Pain Xray showed no acute bony abnormality is identified involving the cervical spine. Toradol given Recommended outpatient PT pain control Urinary retention Related to baclofen resolved CAD Denies any chest pain EKG showed no ischemic changes Continue metoprol/statin and aspirin stable H/o TIA Continue aspirin/ statin DVT px on heparin subq CODE Status FULL no Mech Ventilation Disposition Will discharge home today Total time spent on discharge = 35minutes This includes examination of the patient, discharge planning, medication reconciliation, and communication with other providers. Discharge Instructions Discharge Instructions Date of Service Mar 14, 2017. Admission Reason for Admission: Dizziness Discharge Discharge Diagnosis / Problem: Altered Mental Status, Dizziness, Nauseas/ Vominting Discharge Goals Goal(s): Decrease discomfort, Improve function, Increase independence Activity Recommendations Activity Limitations: resume your previous activity (as tolerated) . Instructions / Follow-Up Instructions / Follow-Up Follow up with Dr. Gao (Dr. Moon Colleague) on 03/19 @ 11:30 am at the [facility] Fall precaution Continue physical therapy ( script given) Current Hospital Diet Patient's current hospital diet: AHA Diet (Heart Healthy) Discharge Diet Recommended Diet: AHA Diet (Heart Healthy) Pending Studies Studies pending at discharge: no Medical Emergencies . Who to Call and When: Medical Emergencies: If at any time you feel your situation is an emergency, please call 911 immediately. . Non-Emergent Contact Non-Emergency issues call your: Primary Care Provider Call Non-Emergent contact if: your pain is not controlled, your pain is worsening, you have any medication questions . . "Provider Documentation" section prepared by Marie Frank. . VTE Core Measure Inpt VTE Proph given/why not?: Unfractionated heparin SQ Signed: Signed: The status of this report is Draft * If report status is Draft, the document has not been finalized by the responsible provider. Additional Copies To Radha Moon D.O.
== END 2017-03-14 16:59 | disposition home or self-care (01) ==
LOC: C.EDB 11:35 → C.MED 17:01 → ENRESERV 17:13
PROVIDERS: ADMIT Internal Medicine; ATTEND Internal Medicine
DX: R41.82 Altered mental status, unspecified (principal); R42 Dizziness and giddiness; R11.2 Nausea with vomiting, unspecified; M54.2 Cervicalgia; R33.9 Retention of urine, unspecified; I25.10 Atherosclerotic heart disease of native coronary artery without angina pectoris; Z86.73 Personal history of transient ischemic attack (TIA), and cerebral infarction without residual deficits; Z79.82 Long term (current) use of aspirin; Z79.899 Other long term (current) drug therapy; M81.0 Age-related osteoporosis without current pathological fracture; E78.5 Hyperlipidemia, unspecified; Z88.7 Allergy status to serum and vaccine